=== PATIENT | female | born 1995 | race African-American/Black ===

== ENCOUNTER 2016-12-12 03:47 | Emergency (ER) | payer MEDICAID ==
[~2016-12-12] VITALS: Ht 170.2 cm; Wt 93.0 kg
[~2016-12-12 03:47] MED LIST: PREN27TA7 OR
[2016-12-12 07:20] VITALS: BP 129/71
[2016-12-12] MEDS ORDERED: methylPREDNISolone SOD SUCC 125 MG/2 ML VL ONE (07:22)
[2016-12-12] MEDS ORDERED: methylPREDNISolone SOD SUCC 125 MG/2 ML VL IM ONE (07:30)
== END 2016-12-12 07:36 | disposition home or self-care (01) ==
LOC: ER 03:47
DX: S00.561A Insect bite (nonvenomous) of lip, initial encounter (principal); W57.XXXA Bitten or stung by nonvenomous insect and other nonvenomous arthropods, initial encounter; Y93.89 Activity, other specified; Y92.89 Other specified places as the place of occurrence of the external cause; Y99.8 Other external cause status
CPT/HCPCS: 96372; 99283; J2930